=== PATIENT | female | born 1945 ===

== ENCOUNTER 2017-07-10 05:56 | Day surgery (SDC) | payer MEDICARE, OTHER ==
[2017-07-06 09:27] VITALS: BMI 23.4
[2017-07-10] MEDS ORDERED: Propofol 10 mg/ml Inj (20 ML) ONE (07:29)
[2017-07-10] MEDS ORDERED: Clindamycin 600mg/50ml NS 600 MG/50 ML BAG IVPB ONE (07:31)
[2017-07-10] MEDS ORDERED: Bupivacaine HCl 0.5% PF (30 ml) Inj ONE (08:21)
[2017-07-10] MEDS ORDERED: HYDROmorphone 0.5 mg/0.5 ml ISec IVP PRN (08:38)
[2017-07-10 08:59] VITALS: O2SAT 100
--- NOTE | 2017-07-10 09:33 | CP.PCM.PN ---
Subjective - Date & Time of Evaluation Date of Evaluation: 07/10/17 Time of Evaluation: 09:00 - Subjective Subjective: Patient s/p right middle finger trigger release. Right median nerve block done in PACU at request of Dr. Raines. Patient consented, sterile chlorhexidine prep applied. 2" block needle used. After negative aspiration, 4 cc 0.5% bupivacaine injected around right median nerve at antecubital fossa under ultrasound guidance. VSS, patient tolerated procedure well. Objective - Vital Signs/Intake and Output Vital Signs (last 24 hours): Temp Pulse Resp BP Pulse Ox 97.7 F 88 9 L 126/71 100 07/10/17 08:37 07/10/17 09:15 07/10/17 09:15 07/10/17 09:15 07/10/17 09:15 - Medications Medications: Current Medications Hydromorphone HCl (Dilaudid) 0.5 mg IVP Q10M PRN PRN Reason: Pain, severe (8-10) Stop: 07/10/17 10:38 Ketorolac Tromethamine (Toradol) 30 mg IVP ONCE PRN PRN Reason: Pain, severe (8-10) Stop: 07/10/17 10:38 Ondansetron HCl (Zofran Inj) 4 mg IVP ONCE PRN PRN Reason: Nausea/Vomiting Stop: 07/10/17 10:39
[2017-07-10 10:40] VITALS: RESP 15
[2017-07-10 10:45] VITALS: BP 116/74; PULSE 86; TEMP 97.6
--- NOTE | 2017-07-15 18:29 | PCM.SURG1 ---
Surgeon's Initial Post Op Note - Surgeon's Notes Surgeon: Damaso Raines MD Terrazzo Helper: Abiodun Wilson PA-C Type of Anesthesia: General LMA Pre-Operative Diagnosis: Right hand middle finger trigger finger Operative Findings: Right hand middle finger. #1 trigger finger (hypertorphic A1 hemanth). #2 flexor tenosynovitis Post-Operative Diagnosis: Right hand middle finger. #1 trigger finger ( hypertorphic A1 hemanth). #2 flexor tenosynovitis Operation Performed: Right hand middle finger: #1 open trigger finger release ( release of A1 hemanth). #2 debridement flexor tenosynovitis Specimen/Specimens Removed: specimen= none. implants= none. tourniquet time= 0min. complications= none Estimated Blood Loss: EBL {In ML}: 3 Blood Products Given: N/A Drains Used: No Drains Post-Op Condition: Good Date of Surgery/Procedure: 07/10/17 Time of Surgery/Procedure: 08:00
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
== END 2017-07-10 10:43 | disposition home or self-care (01) ==
LOC: C.SDS 05:56
PROVIDERS: ATTEND Student in an Organized Health Care Education/Training Program
DX: M65.331 Trigger finger, right middle finger (principal)
CPT/HCPCS: 26055; J2001; J2405; J2704; J3010; J7120

== ENCOUNTER 2017-11-27 05:44 | Day surgery (SDC) | payer MEDICARE, OTHER ==
[2017-07-06 09:27] VITALS: BMI 23.4
[2017-11-27] MEDS ORDERED: Propofol 10 mg/ml Inj (20 ML) ONE (07:52)
[2017-11-27] MEDS ORDERED: Midazolam 2 MG/2 ML VIAL ONE (07:52)
[2017-11-27] MEDS ORDERED: Bupivacaine 0.25% 20 ML INJ IJ ONE (08:00)
[2017-11-27] MEDS ORDERED: HYDROmorphone 0.5 mg/0.5 ml ISec IVP PRN (09:20)
[2017-11-27] MEDS ORDERED: Lactated Ringer's 1,000 ML IV SCH (09:30)
[2017-11-27 09:49] VITALS: O2SAT 100
[2017-11-27 11:11] VITALS: BP 115/63; PULSE 78; RESP 16; TEMP 98.1
--- NOTE | 2017-12-16 12:47 | PCM.SURG1 ---
Surgeon's Initial Post Op Note - Surgeon's Notes Surgeon: Damaso Raines MD Biomedical Engineering Technologist: Abiodun Wilson PA-C Type of Anesthesia: General Endo Pre-Operative Diagnosis: Left hand: #1 ring finger trigger finger. #2 middle finger trigger finger Operative Findings: Left hand: #1 ring finger trigger finger. #2 ring finger flexor tendon partial tearing. #3 middle finger trigger finger Post-Operative Diagnosis: Left hand: #1 ring finger trigger finger. #2 ring finger flexor tendon partial tearing. #3 middle finger trigger finger Operation Performed: Left hand open: #1 ringer finger trigger finger release. #2 ring finger flexor tendon partial tear debridement and synovectomy. #3 middle finger trigger finger release Specimen/Specimens Removed: specimen= none. tourniquet time= 0min. complications= none Estimated Blood Loss: EBL {In ML}: 3 Blood Products Given: N/A Drains Used: No Drains Post-Op Condition: Good Date of Surgery/Procedure: 11/27/17 Time of Surgery/Procedure: 07:00
--- NOTE | 2017-12-17 06:04 | OP ---
PROCEDURE DATE: 11/27/2017 PREOPERATIVE DIAGNOSES: Left hand, 1. Ring finger trigger finger. 2. Middle finger trigger finger. POSTOPERATIVE DIAGNOSES: Left hand, 1. Ring finger trigger finger. 2. Ring finger flexor tendon partial tearing and synovitis. 3. Middle finger trigger finger. PROCEDURES: Left hand, open, 1. Ring finger trigger finger release. 2. Ring finger flexor tendon partial tear debridement and synovectomy. 3. Middle finger trigger finger release. SURGEON: Damaso Raines MD USER EXPERIENCE ARCHITECT: Abiodun Wilson PA-C JUSTIFICATION FOR USER EXPERIENCE ARCHITECT: Abiodun Wilson is a certified physician certified anesthesiologist assistant whose skilled surgical service was an absolute necessity for successful completion of the procedure as she provided skilled surgical assistance with positioning of patient, positioning of extremity, management of surgical field, retraction of neurovascular structures, facilitating open trigger finger release of ring finger and middle finger, facilitating debridement and synovectomy of ring finger flexor tendon partial tear and synovitis, wound closure. Abiodun Wilson was present for the entire case and was an absolute necessity for successful completion of this procedure. ANESTHESIA: General LMA anesthesia. SPECIMENS: None. TOURNIQUET TIME: Zero minutes. COMPLICATIONS: None. ESTIMATED BLOOD LOSS: 3 mL. DRAINS: None. IMPLANTS: None. DISPOSITION: The patient was extubated and transferred to PACU in stable condition and tolerated the procedure well. INDICATIONS FOR SURGERY: The patient is a 72-year-old female who is right-hand dominant with a past medical history significant for glaucoma who presented to my office for the first time with complaints of right hand middle finger pain and left hand middle finger and ring finger pain on 01/22/2017. She complained of triggering and pain with flexion of all the fingers and locking. She underwent cortisone mixture injections to the right hand middle finger A1 hemanth and trigger finger as well as the left hand middle finger and ring finger A1 pulleys and trigger fingers, which provided her with near complete resolution of pain that lasted almost six months. The right hand pain returned in 05/2017, and she underwent right hand middle finger open trigger finger release successfully without any complications and recovered well with good use in function and no pain residual in her right hand as of five months postoperatively. The left hand pain continued to worsen with triggering and pain in the middle and ring fingers. Clinically, the middle and ring fingers both had trigger finger with locking and pain. Question of underlying flexor tenosynovitis as an inflammatory component to her presentation was also there. She was indicated for left hand middle finger and ring finger open trigger finger releases and all the way to indicate the procedures. The risks, benefits, and alternatives of the procedure were discussed in length with the patient with the risks including but not limited to infection, neurovascular damage, loss of function, development of chronic pain and disability, recurrence, need for further surgery, development of blood clots including DVT and PE, anesthesia reactions including . After answering all the questions, she stated that she understood the risks and wished to proceed with the surgery. She was referred to her primary care physician, Dr. Nadya Deutsch, for medial clearance, and the procedure was scheduled at [facility] on 11/27/2017. PROCEDURE IN DETAIL: The patient was identified in the preoperative holding area, and the left hand was marked for surgery. Once again as described above, the risks, benefits and alternatives of the procedure were discussed at length with the patient, and informed consent was obtained. After a brief discussion with the anesthesia staff, the patient was taken to the operating room and placed on a well-padded operating room table, and perioperative IV antibiotics were given. All bony prominences and superficial neurovascular structures were well padded. Initial time-out was done. General anesthesia was administered. Examination under anesthesia was then carried out. Examination under anesthesia: Left hand with locking and triggering of the middle finger and ring finger A1 hemanth complex with a palpable nodule and visible triggering. No swelling. No warmth. No erythema. Skin intact. No evidence of instability. Full range of motion compared to contralateral limb. Continuation of procedure: A tourniquet was placed high on the left arm, but never inflated. Left arm was then prepped and draped in a standard sterile fashion. Final time-out was done with the surgeon, anesthesia staff, OR staff, all in agreement with the patient, procedure being done, and extremity being operated on. We started with treatment of the middle finger. Open middle finger trigger finger release: A small 2-cm incision perpendicular to the long axis of the arm was made just over the palpated nodule and A1 hemanth. Incision made through skin and subcutaneous tissue maintaining good hemostasis. Underlying A1 hemanth and flexor tendon were identified. With use of a blunt instrument between the A1 hemanth and the underlying flexor tendon, the A1 hemanth was sharply incised and released. The underlying flexor digitorum superficialis and flexor digitorum profundus were identified and visualized and found to be intact with no residual triggering with full release of the A1 hemanth. The wound was copiously irrigated and reapproximated with three plain 0 Vicryl sutures for deep tissue followed by three plain 0 nylon sutures for skin. Attention was then turned towards treatments of the ring finger. Open ring finger trigger finger release and debridement: A 2-cm incision was made at the just overlying the A1 hemanth and the palpated nodule at the base of the ring finger. An incision was made through skin, down to subcutaneous tissue, maintaining good hemostasis down to the level of the A1 hemanth. The A1 hemanth and underlying flexor tendons were identified. With retractors in place, a blunt instrument was placed between the A1 hemanth that was hypertrophied and inflamed and the underlying flexor tendons. A complete release of the A1 hemanth was carried out successfully. Flexor tendon was carefully evaluated and the flexor digitorum superficialis and profundus exhibited partial tearing and synovitis, which was carefully debrided while maintaining good hemostasis. Once it was felt that the tendons were tracking normally and smooth and fluid, the wound was copiously irrigated and reapproximated with two plain 0 Vicryl sutures for subcutaneous tissue followed by three plain 0 nylon sutures for skin. A sterile dressing was applied to both wounds, and a compressive wrap was applied. The patient was extubated and transferred to PACU in stable condition and tolerated the procedure well. DISPOSITION: The patient will be discharged home once she is recovered from anesthesia. She was given a prescription for Percocet for pain control. She was instructed to keep the dressings clean, dry, and intact until she follows up in the office within one week and already has a postoperative appointment setup. She will contact me directly with any questions or concerns. Damaso Raines MD
== END 2017-11-27 10:59 | disposition home or self-care (01) ==
LOC: C.SDS 05:44
PROVIDERS: ATTEND Student in an Organized Health Care Education/Training Program
DX: M65.332 Trigger finger, left middle finger (principal); M65.342 Trigger finger, left ring finger; M65.331 Trigger finger, right middle finger; M65.341 Trigger finger, right ring finger
CPT/HCPCS: 26055; 26145; J2250; J2704; J3010